=== PATIENT | female | born 1985 | race Caucasian/White ===

== ENCOUNTER 2024-03-14 04:00 | Day surgery (SDC) | payer OTHER ==
[~2024-03-14] VITALS: Ht 167.6 cm; Wt 67.7 kg
[2024-03-14] VITALS (228 sets, daily range): BP systolic 100–173; BP diastolic 44–122
[2024-03-14] MEDS ORDERED: cloNIDine HCL 0.1 MG/TAB PO PRN (07:30)
[2024-03-14] MEDS ORDERED: PANTOPRAZOLE SODIUM Sesquihydr 40 MG/TAB PO PRN (07:30)
[2024-03-14] MEDS ORDERED: FAMOTIDINE 20 MG/TAB PO PRN (07:30)
[2024-03-14] MEDS ORDERED: SCOPOLAMINE 1.5 MG DIS TD PRN (07:30)
[2024-03-14] MEDS ORDERED: diazePAM 5 MG/TAB PO PRN ×2 (07:30→08:30)
[2024-03-14] MEDS ORDERED: SODIUM CHLORIDE 0.9% 1,000 ML IV PRN ×3 (07:30→14:10)
[2024-03-14] MEDS ORDERED: LACTATED RINGER'S 1,000 ML IV PRN ×2 (07:30→09:40)
[2024-03-14] MEDS ORDERED: ALBUTEROL SULFATE 2.5 MG VIAL IN PRN (07:30)
[2024-03-14] MEDS ORDERED: CYANOCOBALAMIN 500 MCG/TAB ( B12) PO PRN (07:30)
[2024-03-14] MEDS ORDERED: ASCORBIC ACID 4,000 MG in SODIUM CHLORIDE 0.9% 1,000 ML IV SCH (08:00)
[2024-03-14 08:53] LABS: BASO% 0.7 % (0-3); EOS% 0.2 % (0-8); HEMATOCRIT 35.8 % (37.0-47.0); HEMOGLOBIN 11.3 g/dl (12.0-16.0); IMMATURE GRANULOCYTES 0.2 % (0.0-5.0); LYMPH% 27.4 % (15-41); MEAN CELL VOLUME 82.7 fL CALC (80.0-100.0); MEAN CORPUSCULAR HGB 26.1 pG CALC (26.0-32.0); MEAN CORPUSCULAR HGB CONC 31.6 g/dL CAL (32.0-36.0); MONO% 6.6 % (2-13); NEUT# 3.77 thou/uL (2.00-7.15); NEUT% 64.9 % (42-76); RED BLOOD COUNT 4.33 mill/uL (4.20-5.60); RED CELL DISTRI WIDTH 15.2 % (11.5-15.5)
[2024-03-14 09:18] LABS: ALBUMIN 4.1 g/dL (3.2-5.0); BILIRUBIN, TOTAL 0.4 mg/dL (0.02-1.3); POTASSIUM 3.7 mmol/l (3.5-5.1); TOTAL PROTEIN 7.2 g/dL (6.3-8.2)
[2024-03-14] MEDS ORDERED: diazePAM 5 MG/TAB VT PRN (09:40)
[2024-03-14] MEDS ORDERED: MAGNESIUM SULFATE HEPTAHYDRATE 100 ML IV PRN (09:40)
[2024-03-14] MEDS ORDERED: PROPOFOL 10 MG/ML 100ML VIAL IV PRN (09:40)
[2024-03-14] MEDS ORDERED: MIDAZOLAM HCL 2 MG/2 ML VIAL IV PRN ×3 (09:40→09:50)
[2024-03-14] MEDS ORDERED: THIAMINE HCL 100 MG/ML 2ML VIAL IV PRN (09:40)
[2024-03-14] MEDS ORDERED: STERILE WATER FOR IRRIGATION 1,000 ML BTL IR PRN (09:40)
[2024-03-14] MEDS ORDERED: LIDOCAINE HCL 1% (10MG/ML) 100 MG/10 ML MDV IV PRN (09:40)
[2024-03-14] MEDS ORDERED: DiphenhydrAMINE HCL 50 MG/ML SDV IV PRN (09:40)
[2024-03-14] MEDS ORDERED: cloNIDine HYDROCHLORIDE 100 MCG/ML 10 ML INJ IV PRN (09:40)
[2024-03-14] MEDS ORDERED: LIDOCAINE HCL 1% (10MG/ML) 100 MG/10 ML MDV VT PRN ×2 (09:40)
[2024-03-14] MEDS ORDERED: SUCCINYLCHOLINE CHLORIDE 20 MG/ML 10ML VIAL IV PRN (09:40)
[2024-03-14] MEDS ORDERED: NALTREXONE HCL 50 MG/TAB VT PRN (09:40)
[2024-03-14] MEDS ORDERED: ROCURONIUM BROMIDE 10 MG/ML 5 ML VIAL IV PRN (09:40)
[2024-03-14] MEDS ORDERED: OCTREOTIDE ACETATE 100 MCG/VIAL SDV SC PRN (09:40)
[2024-03-14] MEDS ORDERED: POTASSIUM CHLORIDE 20 MEQ/100 ML BAG IV PRN (09:40)
[2024-03-14] MEDS ORDERED: ONDANSETRON HCl 4 MG/2 ML SDV IV PRN ×3 (09:40→19:00)
[2024-03-14] MEDS ORDERED: cloNIDine HCL 0.1 MG/TAB VT PRN (09:40)
[2024-03-14] MEDS ORDERED: PROPOFOL 100 ML IV PRN (09:40)
[2024-03-14] MEDS ORDERED: PHENYLEPHRINE HCL 10 MG in DEXTROSE 5% 250 ML IV SCH (10:45)
[2024-03-14] MEDS ORDERED: DEXMEDETOMIDINE HCL IN SODIUM 100 ML IV SCH (10:50)
[2024-03-14] MEDS ORDERED: NALTREXONE50 MG PO (12:25)
[2024-03-14] MEDS ORDERED: KLONOPIN2 MG PO (12:25)
[2024-03-14] MEDS ORDERED: CLONIDINE0.1 MG PO (12:25)
[2024-03-14] MEDS ORDERED: clonazePAM 1 MG/TAB PO PRN (14:15)
[2024-03-14] MEDS ORDERED: KETOROLAC TROMETHAMINE 30 MG/ML SDV IV PRN (19:00)
[2024-03-14] MEDS ORDERED: HALOPERIDOL LACTATE 5 MG/ML SDV IV PRN (19:00)
[2024-03-14] MEDS ORDERED: LORazepam 2 MG/ML IV PRN ×2 (19:00)
[2024-03-14] MEDS ORDERED: ACETAMINOPHEN 500 MG TAB PO PRN (19:00)
[2024-03-14] MEDS ORDERED: ACETAMINOPHEN 1,000 MG/100 ML VIAL IV PRN (19:00)
[2024-03-14] MEDS ORDERED: PATIENT' OWN MED CONTROLLED 1 EA DOSE IV PRN (21:00)
[2024-03-14] MEDS ORDERED: cloNIDine HCL 0.1 MG/TAB PO SCH (23:00)
[2024-03-15] VITALS (43 sets, daily range): BP systolic 115–152; BP diastolic 55–87
[2024-03-15] MEDS ORDERED: clonazePAM 1 MG/TAB PO PRN ×2 (04:00→08:00)
[2024-03-15] MEDS ORDERED: cloNIDine HCL 0.1 MG/TAB PO PRN (04:00)
[2024-03-15] MEDS ORDERED: NALTREXONE HCL 50 MG/TAB PO SCH (04:00)
[2024-03-15 05:44] LABS: BASO% 0.1 % (0-3); HEMATOCRIT 40.1 % (37.0-47.0); HEMOGLOBIN 12.8 g/dl (12.0-16.0); IMMATURE GRANULOCYTES 0.1 % (0.0-5.0); LYMPH% 14.7 % (15-41); MEAN CELL VOLUME 82.9 fL CALC (80.0-100.0); MEAN CORPUSCULAR HGB 26.4 pG CALC (26.0-32.0); MEAN CORPUSCULAR HGB CONC 31.9 g/dL CAL (32.0-36.0); MONO% 5.1 % (2-13); NEUT# 5.97 thou/uL (2.00-7.15); RED BLOOD COUNT 4.84 mill/uL (4.20-5.60); RED CELL DISTRI WIDTH 15.3 % (11.5-15.5)
[2024-03-15 06:09] LABS: MAGNESIUM 2.6 mg/dL (1.6-2.3); TOTAL PROTEIN 7.2 g/dL (6.3-8.2)
[2024-03-15 06:14] LABS: BILIRUBIN, TOTAL 0.6 mg/dL (0.02-1.3); POTASSIUM 4.6 mmol/l (3.5-5.1)
[2024-03-15] MEDS ORDERED: NALTREXONE HCL 50 MG/TAB PO ONE (07:45)
[2024-03-15] MEDS ORDERED: ACETAMINOPHEN 325 MG/TAB PO SCH (08:00)
[2024-03-15] MEDS ORDERED: cloNIDine HCL 0.1 MG/TAB PO SCH (08:00)
[2024-03-15] MEDS ORDERED: PANTOPRAZOLE SODIUM Sesquihydr 40 MG/TAB PO SCH (08:00)
[2024-03-15] MEDS ORDERED: ACETAMINOPHEN 500 MG TAB PO PRN (09:00)
[2024-03-15] MEDS ORDERED: MAGNESIUM OXIDE 400 MG/TAB PO PRN (09:00)
[2024-03-15] MEDS ORDERED: Cholecalciferol 2,000 UNIT/TAB PO PRN (09:00)
[2024-03-15] MEDS ORDERED: cloNIDine HCL 0.1 MG/TAB PO ONE (11:35)
[2024-03-15] MEDS ORDERED: BISMUTH SUBSALICYLATE 262 MG CHW PO ONE (12:55)
== END 2024-03-15 15:16 | disposition home or self-care (01) | DRG 897 ==
LOC: MS2 04:00 → ANR 04:00 → ICU 19:00 → MS2 03-15 10:08 → ANR 03-15 15:16
PROVIDERS: ATTEND Anesthesiology
DX: F11.20 Opioid dependence, uncomplicated (principal)
CPT/HCPCS: J1100; J1200; J2354; J2405; J2704; J3411; J3475; J3480; J3490